=== PATIENT | female | born 1990 | race Two or more races ===

== ENCOUNTER 2018-02-28 10:25 | Emergency (ER) | payer BC, OTHER ==
[~2018-02-28] VITALS: Ht 157.5 cm; Wt 59.0 kg
[2018-02-28] MEDS ORDERED: SODIUM CHLORIDE 0.9% 1,000 ML IV ONE (10:45)
[2018-02-28] MEDS ORDERED: KETOROLAC TROMETH 30 MG/ML 1ML VIAL IV ONE ×2 (10:45→11:30)
[2018-02-28] MEDS ORDERED: METOCLOPRAMIDE HCL 5MG/ml INJ 2ml VIAL IV ONE (10:45)
[2018-02-28 10:49] VITALS: BP 102/68
[2018-02-28] MEDS ORDERED: ONDANSETRON HCL 4 MG/2 ML VIAL ONE (10:49)
[2018-02-28] MEDS ORDERED: ONDANSETRON HCL 4 MG/2 ML VIAL IV ONE (11:00)
== END 2018-02-28 11:24 | disposition home or self-care (01) ==
LOC: ER 10:25
DX: N94.6 Dysmenorrhea, unspecified (principal)
CPT/HCPCS: 96361; 96374; 96375; 96376; 99284; J1885; J2405; J2765